=== PATIENT | female | born 1995 | race Caucasian/White ===

== ENCOUNTER 2017-04-19 23:12 | Emergency (ER) | payer OTHER ==
--- NOTE | ~2017-04-19 | CON ---
PATIENT'S NAME: NORAH DUNNE [facility] AGE: 21 Y [address] ROOM: [place], [place] [address] LOCATION: [facility] ADMIT DATE: 04/19/2017 Consultation DISCHARGE DATE: 04/20/2017 FAMILY PHYSICIAN: , Unknown ATTENDING PHYSICIAN: Mendel Fisher CHIEF COMPLAINT: Right small finger amputation at the level of the middle of the proximal phalanx with skin degloving just proximal to the MCP joint. This occurred while the patient was swimming [place] the [place], exiting the [email or web address] boat, she got her finger caught, sustaining the above injury. This is her right dominant upper extremity. This is a college student. She was seen in the [facility] where they consulted with our emergency department, Dr. Fisher, who discussed with me the case as to whether or not reimplantation was in my armamentarium. We both understood it is not. They apparently discussed with outside hand specialist, who stated that they did not think it was re- implantable according to the information they received. I am not sure with whom they spoke to. I discussed with them if they want me to simply complete the amputation and close the skin, I could perform that for them. But, I am not skilled in reimplantation or special skin closure flaps. PAST MEDICAL HISTORY: Reviewed. The patient has no chronic medical problems. CURRENT MEDICATIONS: None. ALLERGIES: NO KNOWN DRUG ALLERGIES. PAST SURGERIES: Tonsillectomy and adenoidectomy. Knee surgery with ACL reconstruction. Achille teeth. SOCIAL HISTORY: She occasionally smokes and drinks. Denies any illicit drugs or infections. Questionable whether her tetanus was up-to-date within the last 5 years. She believes it is within the last 10 years. So, she was given a booster here in the ED. PHYSICAL EXAMINATION: VITAL SIGNS: She is 5 feet and 10 inches, 140 kg, pulse is in the 80s, respiratory rate 16, temperature afebrile, blood pressure 140s/70s, and she is saturating 100% on room air. GENERAL: She is alert and oriented x3. Little shocked appearance after this traumatic partial amputation with degloving injury. Her parents are at the PATIENT'S NAME: NORAH DUNNE [facility] AGE: 21 Y [address] ROOM: [place], [place] [address] LOCATION: [facility] ADMIT DATE: 04/19/2017 Consultation DISCHARGE DATE: 04/20/2017 FAMILY PHYSICIAN: , Unknown ATTENDING PHYSICIAN: Mendel Fisher bedside. HEENT: Normocephalic and atraumatic. NECK: Supple. Trachea midline. LUNGS: She breathes without use of accessory muscles. Saturating 100% on room air. EXTREMITIES: She has no injury proximal to the obvious injury at the right dominant small finger. She moves upper extremities without pain. Moves the wrist, elbow, and shoulder without pain. EMERGENCY DEPARTMENT COURSE: She had received Ancef antibiotics in [place]. We gave her additional dose according to her weight as well as some Gram-negative coverage with gentamicin given she was in the [place] when this occurred. They did bring the amputated remains with them after they fished it out of the [place]. I discussed with both parents and the patient, who is 21, the treatment options. Due to the amount of skin loss with degloving that goes just proximal to the MCP joint, in order to get this closed in my hands, I would have to amputate the entire proximal phalanx at least to the level of the MCP joint. If not, take some of the MCP joint, take some of the distal portion of that fifth metacarpal in order to get skin closure. I discussed with them I would contact a hand specialist, we have put a call into a hand specialist in a nearby town, discuss the case with him or her. The patient's family would like an opinion of a hand specialist. They understand the time constraints and the potential for infection that can end up infection in the bone, known as osteomyelitis, that spread further and cause further loss of limb and even life if it gets in her blood stream. They understand the potential complications of anaphylaxis from new antibiotics. I performed a nerve block with 0.5% plain Marcaine 10 mL. I performed aggressive debridement with 1 L of saline and Betadine, wrapped it in sterile dressing, and will await further recommendations as we planned to transfer her to a hand specialist at the patient's and family members' wish. GER MANN DO PH/modl /[id number] d: 04/20/17 0344 t: 04/27/17 1453, CONSULTATION REPORT
--- NOTE | ~2017-04-19 | ER ---
PATIENT'S NAME: NOARH DUNNE VIN [facility] AGE: 21 Y [address] ROOM: [place] [address] LOCATION: [facility] ADMIT DATE: 04/19/2017 ER/Outpatient Report DISCHARGE DATE: 04/20/2017 FAMILY PHYSICIAN: Physician, Unknown ATTENDING PHYSICIAN: Mendel Fisher CHIEF COMPLAINT: Right pinky finger amputation. HISTORY OF PRESENT ILLNESS: Around 08:30 p.m., the patient was jumping off a boat into a [place] when her finger got caught in the door of the boat. She ultimately ended up amputating that finger. She was seen in [place], she was confirmed to be up-to-date on her tetanus, she was given Ancef, and was transferred here by ambulance for further evaluation and treatment. The provider in [place] was able to discuss the case with a hand physician in [place] and the family had elected to come here for closure of the wound. She has had her pain well controlled with multiple different medications. She denies any other acute issues at this time. PAST MEDICAL HISTORY: Documented on the record and reviewed by me. SOCIAL HISTORY: Documented on the record and reviewed by me. MEDICATIONS: Documented on the record and reviewed by me. ALLERGIES: DOCUMENTED ON THE RECORD AND REVIEWED BY ME. REVIEW OF SYSTEMS: All systems were reviewed and negative except as noted in the HPI. PHYSICAL EXAMINATION: VITAL SIGNS: Blood pressure 146/78, pulse 83, respiratory rate 16, temperature 97.7, and SpO2 is 100% on room air. Pain is rated 4/10. GENERAL: An age-appropriate female, obese, semi-recumbent on the exam table, in apparent pain, but no respiratory distress. HEENT: Normocephalic and atraumatic. Eyes are PERRL. Oropharynx is clear. NECK: Supple. Trachea is midline. CHEST: Even and unlabored respirations. HEART: Heart rate is regular. ABDOMEN: Benign. BACK: Deferred. PATIENT'S NAME: NORAH DUNNE [facility] AGE: 21 Y [address] ROOM: [place] [address] LOCATION: [facility] ADMIT DATE: 04/19/2017 ER/Outpatient Report DISCHARGE DATE: 04/20/2017 FAMILY PHYSICIAN: Physician, Unknown ATTENDING PHYSICIAN: Mendel Fisher EXTREMITIES: The left upper and bilateral lower extremities are unremarkable. The only injury of note is amputation of the right fifth digit. There is exposed bone of the proximal phalanx. There is skin loss clear back even more proximal than the MCP, most prominent on the ulnar aspect of the hand. The hand appears to be otherwise neurovascularly intact. LABORATORY DATA AND X-RAYS: Plain films of the hand were obtained and revealed the proximal phalanx to be intact other than some fracture at the tuft with tissue loss. IMPRESSION: Traumatic amputation of the right fifth digit at the interphalangeal joint with degloving to the metacarpophalangeal joint. EMERGENCY DEPARTMENT COURSE: The patient was seen and evaluated as above. Dr. Rosado, orthopedic surgeon, did come and evaluate the hand. He offered significant debridement with skin closure, however, the patient would really like to keep whatever of her finger would be functional or possible. For that reason, we were able to discuss the case with Dr. Walter, hand surgeon, at [facility]. He has agreed to accept the patient to the emergency department for evaluation by the Orthopedics Team and probable rongeur of the bone and closure of the skin flap with loss of the proximal phalanx, however, they would not be able to determine that definitively until evaluation. Dr. Rosado performed digital block, washed the wound extensively, and the patient was also given gentamicin for coverage as she was in a [place] when this injury happened. The digit was available, it was in a separate bag, enclosed, but in ice otherwise. Based on the injury pattern, I do not think replant is an appropriate course of action at this time. The patient is disappointed, but understands. I explained the likelihood that [facility] would offer similar evaluation to what we had at this facility, however, we could not definitively say they would be unable to and unwilling to provide further skin mobilization and possibly try to keep her remaining bone. The patient would like to investigate that further. I explained this extensively to both the family and the patient. They will likely see residents at the [facility], who will help make that decision. The patient expressed her persistent desire to continue. We secured ambulance transport for the patient and she was taken to [facility] Emergency Department for further evaluation and treatment of this issue. The reason for transfer is possibility of possible more extensive tissue salvage than we are able to provide at this facility. I did notify Dr. Moore, ER physician, of this patient. An official acceptance by Dr. Walter was secured at 0111 hours. PATIENT'S NAME: NORAH DUNNE [facility] AGE: 21 Y [address] ROOM: [place] [address] LOCATION: [facility] ADMIT DATE: 04/19/2017 ER/Outpatient Report DISCHARGE DATE: 04/20/2017 FAMILY PHYSICIAN: Physician, Unknown ATTENDING PHYSICIAN: Mendel Fisher MD JH/minnie /[id number] d: 04/20/17 0412 t: 04/21/17 1256, OUTPATIENT REPORT
--- NOTE | ~2017-04-19 | ER ---
PATIENT'S NAME: NORAH DUNNE [facility] AGE: 21 Y [address] ROOM: [place] [address] [address]: [facility] ADMIT DATE: 04/19/2017 ER/Outpatient Report DISCHARGE DATE: 04/20/2017 FAMILY PHYSICIAN: Physician, Unknown ATTENDING PHYSICIAN: Mendel Fisher ADDENDUM: After discussion with the patient and family members, they wished to see a hand specialist. I talked to [facility] hand surgeon newsperson, Dr. Walter. He apparently had discussed this case with the nurse practitioner mid-level from [place] and told the patient and family members that he did not think this was a re-implantable case. After further discussion with him, he does not perform reimplantation. I told this to the family. I offered my services which would be to take back and disarticulate the remaining proximal phalanx to the level of the MC joint and even maybe a small portion of the condyles in order to get the skin closed and may need of V-Y plasty due to the skin being degloved just proximal to the MCP, with the goal being closure of the skin to prevent infection. I told them this is likely what they would do at [facility] and they have the risk of being transferred to another facility as well as the ambulance cost if they choose to go by ambulance, the risk of traveling at night by POV. Both parents and daughter understand the risks. They understand that they may do the exact same thing at [facility]. She wants adamantly to see a hand specialist and attempt to keep as much of the proximal phalanx as possible. I discussed with her there is really no functional advantage of keeping the short proximal phalanx. They both understand this and still request to be transferred to see a hand specialist at [facility]. She has been given antibiotics for both gram- positive and gram-negative coverage as well as updated tetanus. I performed a formal irrigation and debridement with Betadine and saline under digital block with 0.5% plain Marcaine. Covered with sterile dressing in prep for transfer. GER MANN DO PH/modl /[id number] d: 04/20/17 0331 t: 04/27/17 1455, OUTPATIENT REPORT
== END 2017-04-20 01:49 | disposition disaster alternative care site (69) ==
LOC: GACC 23:12
PROC: 3E0T3BZ Introduction of Anesthetic Agent into Peripheral Nerves and Plexi, Percutaneous Approach (ICD-10-PCS; principal; 2017-04-19)
DX: S68.116A Complete traumatic metacarpophalangeal amputation of right little finger, initial encounter (principal); F17.200 Nicotine dependence, unspecified, uncomplicated; Z90.89 Acquired absence of other organs; Z98.818 Other dental procedure status; Z98.890 Other specified postprocedural states; W23.1XXA Caught, crushed, jammed, or pinched between stationary objects, initial encounter; Y93.11 Activity, swimming; Y92.828 Other wilderness area as the place of occurrence of the external cause
CPT/HCPCS: J1580; J2405; J3010

== ENCOUNTER → 2017-04-20 | Outpatient (CLI) | payer OTHER | END | disposition disaster alternative care site (69) | LOC: GAMB 01:35 → EDSTATUS 07:54 | DX: S69.91XA Unspecified injury of right wrist, hand and finger(s), initial encounter (principal); M79.641 Pain in right hand; Z89.021 Acquired absence of right finger(s); W22.8XXA Striking against or struck by other objects, initial encounter | CPT/HCPCS: A0425; A0426; J3010 ==